=== PATIENT | female | born 1945 | race Caucasian/White ===

== ENCOUNTER 2023-08-21 09:42 | Emergency (ER) | payer OTHER ==
[~2023-08-21] VITALS: Ht 154.9 cm; Wt 50.0 kg
[2023-08-21] MEDS ORDERED: EPINEPHrine HCL 1 MG/10 ML SYRG IV ONE (09:43)
[2023-08-21] MEDS ORDERED: AMIODARONE HCL (50 MG/ ML) 3 ML VIAL IV ONE (09:43)
[2023-08-21] MEDS ORDERED: SODIUM BICARBONATE 8.4% INJ 50ML SYRINGE IV ONE (09:43)
[2023-08-21 10:01] VITALS: PULSE 0; RESP 0; O2SAT 0
== END 2023-08-21 10:01 ==
LOC: ER 09:42 → EDBD 09:44 → ER 10:01
DX: I46.9 Cardiac arrest, cause unspecified (principal)
CPT/HCPCS: 31500; 92950; 99285; J0171; J0282